=== PATIENT | female | born 1960 | race Caucasian/White ===

== ENCOUNTER 2019-05-20 08:53 | Inpatient (IN) | payer MEDICAID ==
[~2019-05-20] VITALS: Ht 180.3 cm; Wt 137.8 kg
[2019-05-20 09:50] LABS: BASOPHILS % (AUTO) 0.2 % (0-1); EOSINOPHILS % (AUTO) 0 % (0-6); HEMATOCRIT 40.8 % (35.0-45.0); HEMOGLOBIN 13.8 g/dl (12.0-16.0); LYMPHOCYTES # (AUTO) 0.9 X10'3 (1.1-4.8); LYMPHOCYTES % (AUTO) 5.9 % (21-51); MEAN CORPUSCULAR HEMOGLOBIN 29.9 PG (27.0-31.0); MEAN CORPUSCULAR HGB CONC 33.8 g/dL (33.0-36.5); MEAN CORPUSCULAR VOLUME 88.4 FL (78-98); MEAN PLATELET VOLUME 7.2 FL (7.4-10.4); MONOCYTES # (AUTO) 0.5 X10'3 (0-0.9); MONOCYTES % (AUTO) 3.5 % (2-12); NEUTROPHILS # (AUTO) 13.2 X10'3 (1.8-7.7); NEUTROPHILS % (AUTO) 90.4 % (42-75); PLATELET COUNT 194 X10'3 (140-440); RED BLOOD COUNT 4.61 X10'6 (4.20-5.60); RED CELL DISTRIBUTION WIDTH 13.7 % (11.5-14.5); WHITE BLOOD COUNT 14.6 X10'3 (4.5-11.0)
[2019-05-20 10:02] LABS: PARTIAL THROMBOPLASTIN TIME 37 SECONDS (22-32)
[2019-05-20 10:08] LABS: ALANINE AMINOTRANSFERASE 15 U/L (12-78); ALBUMIN 3.4 G/DL (3.4-5.0); ALBUMIN/GLOBULIN RATIO 0.7 (1.1-1.5); ALKALINE PHOSPHATASE 60 IU/L (46-116); ANION GAP 11 (8-16); ASPARTATE AMINO TRANSFERASE 21 U/L (10-37); BILIRUBIN,TOTAL 0.8 MG/DL (0.1-1.0); BLOOD UREA NITROGEN 22 MG/DL (7-18); CHLORIDE 96 MMOL/L (99-107); GLUCOSE 103 MG/DL (70-104); POTASSIUM 3.5 MMOL/L (3.5-5.1); SODIUM 133 MMOL/L (135-145); TOTAL PROTEIN 8.1 G/DL (6.4-8.2); eGFR 50 ML/MIN
[2019-05-20] MEDS ORDERED: CefTRIAXone 2gm/D5W 50ml 50 ML IV ONE (10:40)
[2019-05-20] MEDS ORDERED: vancomycin/NS 1 GM ADD-VANTAGE 250 ML IV ONE (10:40)
[2019-05-20] MEDS ORDERED: normal saline 1000ML IV soln IV ONE (10:40)
[2019-05-20] MEDS ORDERED: DOXY-1 PO (11:08)
[2019-05-20] MEDS ORDERED: AMOX-580 PO (11:08)
[2019-05-20] MEDS ORDERED: ALB0.5UD IH (11:09)
[2019-05-20] MEDS ORDERED: magnesium hydroxide 30ml (MOM) UD suspension PO PRN (12:35)
[2019-05-20] MEDS ORDERED: acetaminophen 325mg tablet PO PRN (12:35)
[2019-05-20] MEDS ORDERED: HYDROcodone/acetaminophen 5mg/325mg tablet PO PRN (12:35)
[2019-05-20] MEDS ORDERED: mag hydrox/Alum hydrox/simeth 30ml oral suspension PO PRN (12:35)
[2019-05-20] MEDS: normal saline 1000ml 1,000 ML IV SCH ×2 (13:14→22:34)
[2019-05-20 14:10] LABS: CLARITY,URINE SLIGHTLY CLOUDY (Clear); GLUCOSE, URINE NEGATIVE (Neg); KETONES,URINE 15 mg/dl (Neg); LEUKOCYTE ESTERASE ,URINE NEGATIVE (Neg); NITRITES, URINE NEGATIVE (Neg); OCCULT BLOOD,URINE LARGE (Neg); PROTEIN,URINE 30 mg/dl (Neg)
[2019-05-20 14:12] LABS: COLOR,URINE DARK YELLOW (Yellow); UA COLLECTION TYPE CLN CATCH MIDSTREAM
[2019-05-20 14:13] LABS: URINE AMPHETAMINE SCREEN NEGATIVE (Neg); URINE BARBITUATE SCREEN NEGATIVE (Neg); URINE BENZODIAZEPINES SCREEN NEGATIVE (Neg); URINE CANNABINOID SCREEN NEGATIVE (Neg); URINE COCAINE SCREEN NEGATIVE (Neg); URINE METHADONE SCREEN POSITIVE (Neg); URINE OPIATE SCREEN NEGATIVE (Neg); URINE PHENCYCLIDINE SCREEN NEGATIVE (Neg)
[2019-05-20] MEDS: ondansetron/PF 4mg/2ml inj IV PRN (14:20)
[2019-05-20 14:27] LABS: WBC,URINE 0-4 /HPF (0-4)
[2019-05-20] MEDS: HYDROmorphone inj. 0.5 MG/0.5 ML DISP.SYRIN IV PRN ×2 (14:27→19:02)
[2019-05-20 14:28] LABS: AMORPHOUS URATES 1+; BACTERIA,URINE NONE SEEN /HPF (Neg); CELLULAR CAST 0-4 /LPF (NEGATIVE); COARSE GRANULAR CAST 0-3 /LPF (NEGATIVE); FINE GRANULAR CAST 0-3 /LPF (NEGATIVE); HYALINE CASTS 0-3 /LPF (NEGATIVE); MUCUS STRANDS MODERATE /LPF (Neg); RENAL CELLS, URINE FEW /HPF; SQUAMOUS EPITHELIAL CELL,UR FEW /LPF (FEW); TRANSITIONAL EPI CELLS,URINE FEW /HPF
[2019-05-20] MEDS ORDERED: piperacillin/tazo 4.5gm/100ml 100 ML IV SCH (16:00)
--- NOTE | 2019-05-20 16:00 | NUR ---
Patient in room ORTHO 4021B. I have received report from HEAD REFRIGERATING ENGINEER and had the opportunity to ask questions and assume patient care.
[2019-05-20] MEDS: HYDROcodone/acetaminophen 10/325mg tab PO PRN (17:43)
[2019-05-20 18:00] VITALS: BP 100/34
--- NOTE | 2019-05-20 18:28 | NUR ---
Problems reprioritized. Patient report given, questions answered & plan of care reviewed with MARIA ELENA WALKER.
[2019-05-20] MEDS: heparin, porcine 5000 units/ml vial SQ SCH (21:24)
[2019-05-20 22:00] VITALS: BP 101/44
[2019-05-21] MEDS: piperacillin/tazo 4.5gm/100ml 100 ML IV SCH ×4 (02:00→19:05)
[2019-05-21] MEDS: albuterol 2.5 MG/3 ML nebule NEB PRN (02:10)
[2019-05-21] MEDS: normal saline 1000ml 1,000 ML IV SCH (02:55)
[2019-05-21 05:00] VITALS: BP 109/61
[2019-05-21 06:13] LABS: BASOPHILS % (AUTO) 0.1 % (0-1); EOSINOPHILS % (AUTO) 0.3 % (0-6); HEMATOCRIT 36.3 % (35.0-45.0); HEMOGLOBIN 12.5 g/dl (12.0-16.0); LYMPHOCYTES # (AUTO) 0.9 X10'3 (1.1-4.8); LYMPHOCYTES % (AUTO) 6.9 % (21-51); MEAN CORPUSCULAR HEMOGLOBIN 30.3 PG (27.0-31.0); MEAN CORPUSCULAR HGB CONC 34.4 g/dL (33.0-36.5); MEAN PLATELET VOLUME 7.4 FL (7.4-10.4); MONOCYTES # (AUTO) 0.8 X10'3 (0-0.9); MONOCYTES % (AUTO) 5.7 % (2-12); NEUTROPHILS # (AUTO) 11.9 X10'3 (1.8-7.7); PLATELET COUNT 190 X10'3 (140-440); RED BLOOD COUNT 4.12 X10'6 (4.20-5.60); RED CELL DISTRIBUTION WIDTH 14.3 % (11.5-14.5); WHITE BLOOD COUNT 13.6 X10'3 (4.5-11.0)
[2019-05-21 06:15] LABS: ALBUMIN 2.8 G/DL (3.4-5.0); ANION GAP 7 (8-16); BLOOD UREA NITROGEN 18 MG/DL (7-18); BUN/CREATININE RATIO 21.7 (6.6-38.0); CALCIUM 8.6 MG/DL (8.5-10.1); CHLORIDE 103 MMOL/L (99-107); CREATININE 0.83 MG/DL (0.40-0.90); GLUCOSE 133 MG/DL (70-104); POTASSIUM 3.6 MMOL/L (3.5-5.1); SODIUM 138 MMOL/L (135-145); TOTAL CARBON DIOXIDE 27.7 MMOL/L (24-32); eGFR 70 ML/MIN
--- NOTE | 2019-05-21 06:16 | NUR ---
Problems reprioritized. Patient report given, questions answered & plan of care reviewed with Diann ARREDONDO.
--- NOTE | 2019-05-21 06:34 | NUR ---
Patient in room ORTHO 4021B. I have received report from MARIA ELENA Ramirez and had the opportunity to ask questions and assume patient care.
[2019-05-21] MEDS: HYDROmorphone inj. 0.5 MG/0.5 ML DISP.SYRIN IV PRN ×2 (07:02→19:06)
[2019-05-21] MEDS: heparin, porcine 5000 units/ml vial SQ SCH ×2 (07:15→19:05)
[2019-05-21 07:45] VITALS: BP 114/46
--- NOTE | 2019-05-21 08:04 | NUR ---
PAGER ID: [phone] MESSAGE: LOAN [phone]-NIHARIKA WALKER 4021B...PT CURRENTLY TAKES METHADONE LIQUID 80MG DAILY AT 5AM, THROUGH [facility], ITS NOT ON MED REQ, CAN I GET AN ORDER?
[2019-05-21 10:00] VITALS: BP 89/53
--- NOTE | 2019-05-21 10:23 | NUR ---
UPON IV ASSESSMENT, NOTICED MED WAS NOT RUNNING, WAS STILL CLAMPED. SIGN SHOP SUPERVISOR NOTIFIED AND MD NOTIFIED, CONTINUE WITH NEXT DOSE DUE AT 1000.
[2019-05-21] MEDS: methadone 10mg tablet PO SCH (11:37)
--- NOTE | 2019-05-21 17:48 | NUR ---
PAGER ID: [phone] MESSAGE: LOAN [id number]-RE: NIHARIKA WALKER 4021B...PT IS HAVING A HARD TIME BREATHING...CAN I ORDER RESPITORY EVAL & TX?
[2019-05-21 18:00] VITALS: BP 123/57
--- NOTE | 2019-05-21 18:15 | NUR ---
Problems reprioritized. Patient report given, questions answered & plan of care reviewed with MARIA ELENA ABARCA.
[2019-05-21 22:00] VITALS: BP 110/50
[2019-05-22] MEDS: HYDROmorphone inj. 0.5 MG/0.5 ML DISP.SYRIN IV PRN ×2 (00:50→05:07)
[2019-05-22] MEDS: piperacillin/tazo 4.5gm/100ml 100 ML IV SCH ×3 (01:43→17:53)
[2019-05-22] MEDS: normal saline 1000ml 1,000 ML IV SCH ×2 (01:44→04:34)
[2019-05-22 06:00] VITALS: BP 123/57
--- NOTE | 2019-05-22 06:26 | NUR ---
Patient report given, questions answered and plan of care reviewed with MARIA ELENA Araiza.
[2019-05-22] MEDS ORDERED: VANCOMYCIN LEVEL IV ONE ×2 (07:30→11:30)
[2019-05-22] MEDS: methadone 10mg tablet PO SCH (08:03)
[2019-05-22] MEDS: heparin, porcine 5000 units/ml vial SQ SCH ×2 (08:06→19:43)
[2019-05-22 09:05] LABS: BASOPHILS % (AUTO) 0.3 % (0-1); EOSINOPHILS # (AUTO) 0.1 X10'3 (0-0.9); EOSINOPHILS % (AUTO) 1.4 % (0-6); HEMATOCRIT 35.3 % (35.0-45.0); LYMPHOCYTES # (AUTO) 1.3 X10'3 (1.1-4.8); LYMPHOCYTES % (AUTO) 14.4 % (21-51); MEAN CORPUSCULAR HEMOGLOBIN 30.3 PG (27.0-31.0); MEAN CORPUSCULAR HGB CONC 33.9 g/dL (33.0-36.5); MEAN CORPUSCULAR VOLUME 89.3 FL (78-98); MEAN PLATELET VOLUME 7.2 FL (7.4-10.4); MONOCYTES # (AUTO) 0.8 X10'3 (0-0.9); MONOCYTES % (AUTO) 9.1 % (2-12); NEUTROPHILS # (AUTO) 6.7 X10'3 (1.8-7.7); NEUTROPHILS % (AUTO) 74.8 % (42-75); PLATELET COUNT 189 X10'3 (140-440); RED BLOOD COUNT 3.96 X10'6 (4.20-5.60); RED CELL DISTRIBUTION WIDTH 14.7 % (11.5-14.5)
--- NOTE | 2019-05-22 09:21 | NUR ---
PAGER ID: [phone] MESSAGE: Teodora [phone] re Yessi Delgado in [id number]- Can we increase pain meds? dilaudid 1 mg? .5mg was ineffective, as is 1 [place] 10. She is opiate tolerant
[2019-05-22] MEDS: ibuprofen tablet 400 MG TABLET PO SCH ×3 (09:52→17:53)
[2019-05-22 10:00] VITALS: BP 112/52
[2019-05-22] MEDS: HYDROmorphone 1 mg/ml syringe IV PRN ×4 (10:16→23:48)
--- NOTE | 2019-05-22 11:47 | NUR ---
Student documentation: I have reviewed all interventions, assessments performed and documented by Burton Carlton. Student Medication Administration: For this medication-pass time frame, all medication were reviewed, dispensed, administered and documented per hospital policy by Burton Carlton.
--- NOTE | 2019-05-22 12:00 | NUR ---
RECEIVED REPORT FROM MIKAL ODELL, SALES PERFORMANCE ANALYST ON PATIENT IN ROOM 4021B ORTHO. I WAS ABLE TO ASK QUESTIONS AND HAVE THEM ANSWERED. I ASSUMED CARE OF PATIENT.
[2019-05-22] MEDS ORDERED: ibuprofen tablet 400 MG TABLET PO SCH (12:30)
[2019-05-22] MEDS: furosemide 20MG tablet PO SCH (12:43)
[2019-05-22 12:46] VITALS: BP 128/62
[2019-05-22] MEDS: albuterol 2.5 MG/3 ML nebule NEB PRN (16:15)
[2019-05-22 18:00] VITALS: BP 104/48
--- NOTE | 2019-05-22 18:35 | NUR ---
Patient in room ORTHO 4021. I have received report from Teodora ARREDONDO and had the opportunity to ask questions and assume patient care.
[2019-05-22] MEDS: mineral oil/petrolatum, white cream 113gm jar TP SCH (21:42)
[2019-05-22 22:00] VITALS: BP 100/49
--- NOTE | 2019-05-22 23:40 | NUR ---
Offered [place] to patient for pain but patient doesn't want norco due to it upsets her stomach.
[2019-05-23] MEDS: piperacillin/tazo 4.5gm/100ml 100 ML IV SCH ×3 (01:52→16:49)
[2019-05-23] MEDS: HYDROmorphone 1 mg/ml syringe IV PRN ×5 (04:23→20:50)
[2019-05-23 06:00] VITALS: BP 93/43
--- NOTE | 2019-05-23 06:20 | NUR ---
Patient in room ORTHO 4021. I have received report from Debbie ARREDONDO and had the opportunity to ask questions and assume patient care.
--- NOTE | 2019-05-23 06:26 | NUR ---
Problems reprioritized. Patient report given, questions answered & plan of care reviewed with Bea ARREDONDO.
[2019-05-23 06:31] LABS: BASOPHILS % (AUTO) 0.5 % (0-1); EOSINOPHILS # (AUTO) 0.2 X10'3 (0-0.9); EOSINOPHILS % (AUTO) 2.3 % (0-6); HEMATOCRIT 33.9 % (35.0-45.0); HEMOGLOBIN 11.5 g/dl (12.0-16.0); LYMPHOCYTES # (AUTO) 1.5 X10'3 (1.1-4.8); LYMPHOCYTES % (AUTO) 20.3 % (21-51); MEAN CORPUSCULAR HEMOGLOBIN 29.9 PG (27.0-31.0); MEAN CORPUSCULAR HGB CONC 33.8 g/dL (33.0-36.5); MEAN CORPUSCULAR VOLUME 88.4 FL (78-98); MEAN PLATELET VOLUME 7.1 FL (7.4-10.4); MONOCYTES # (AUTO) 0.7 X10'3 (0-0.9); MONOCYTES % (AUTO) 10.1 % (2-12); NEUTROPHILS # (AUTO) 4.9 X10'3 (1.8-7.7); NEUTROPHILS % (AUTO) 66.8 % (42-75); PLATELET COUNT 218 X10'3 (140-440); RED BLOOD COUNT 3.84 X10'6 (4.20-5.60); RED CELL DISTRIBUTION WIDTH 14.6 % (11.5-14.5); WHITE BLOOD COUNT 7.3 X10'3 (4.5-11.0)
[2019-05-23 06:44] LABS: ALBUMIN 2.2 G/DL (3.4-5.0); ANION GAP 6 (8-16); BLOOD UREA NITROGEN 14 MG/DL (7-18); BUN/CREATININE RATIO 17.1 (6.6-38.0); CALCIUM 8.5 MG/DL (8.5-10.1); CHLORIDE 105 MMOL/L (99-107); CREATININE 0.82 MG/DL (0.40-0.90); GLUCOSE 125 MG/DL (70-104); SODIUM 139 MMOL/L (135-145); TOTAL CARBON DIOXIDE 27.6 MMOL/L (24-32); eGFR 71 ML/MIN
[2019-05-23] MEDS: methadone 10mg tablet PO SCH (08:24)
[2019-05-23] MEDS: furosemide 20MG tablet PO SCH (08:25)
[2019-05-23] MEDS: heparin, porcine 5000 units/ml vial SQ SCH ×2 (08:25→19:34)
[2019-05-23] MEDS: ibuprofen tablet 400 MG TABLET PO SCH ×3 (08:25→16:49)
[2019-05-23 10:00] VITALS: BP 116/59
[2019-05-23] MEDS: mineral oil/petrolatum, white cream 113gm jar TP SCH ×2 (10:01→19:35)
[2019-05-23 18:00] VITALS: BP 115/49
--- NOTE | 2019-05-23 18:04 | NUR ---
Problems reprioritized. Patient report given, questions answered & plan of care reviewed with Debbie ARREDONDO.
--- NOTE | 2019-05-23 18:29 | NUR ---
Patient in room ORTHO 4021. I have received report from Bea ARREDONDO and had the opportunity to ask questions and assume patient care.
[2019-05-23] MEDS: lactobacillus rhamnosus 10,000 MMU CELLS/CAPSULE PO SCH (19:33)
[2019-05-23 22:00] VITALS: BP 112/46
[2019-05-24] MEDS: piperacillin/tazo 4.5gm/100ml 100 ML IV SCH ×3 (01:32→17:48)
[2019-05-24] MEDS: HYDROmorphone 1 mg/ml syringe IV PRN ×6 (01:35→22:01)
[2019-05-24 06:00] VITALS: BP 107/56
--- NOTE | 2019-05-24 06:21 | NUR ---
Problems reprioritized. Patient report given, questions answered & plan of care reviewed with Bea ARREDONDO.
--- NOTE | 2019-05-24 06:29 | NUR ---
Patient in room ORTHO 4021. I have received report from Debbie ARREDONDO and had the opportunity to ask questions and assume patient care.
[2019-05-24 07:12] LABS: BASOPHILS % (AUTO) 0.5 % (0-1); EOSINOPHILS # (AUTO) 0.3 X10'3 (0-0.9); EOSINOPHILS % (AUTO) 3.8 % (0-6); HEMATOCRIT 37.1 % (35.0-45.0); HEMOGLOBIN 12.5 g/dl (12.0-16.0); LYMPHOCYTES # (AUTO) 1.6 X10'3 (1.1-4.8); MEAN CORPUSCULAR HEMOGLOBIN 30.1 PG (27.0-31.0); MEAN CORPUSCULAR HGB CONC 33.7 g/dL (33.0-36.5); MEAN CORPUSCULAR VOLUME 89.3 FL (78-98); MONOCYTES # (AUTO) 0.5 X10'3 (0-0.9); NEUTROPHILS # (AUTO) 4.7 X10'3 (1.8-7.7); NEUTROPHILS % (AUTO) 65.7 % (42-75); PLATELET COUNT 296 X10'3 (140-440); RED BLOOD COUNT 4.16 X10'6 (4.20-5.60); RED CELL DISTRIBUTION WIDTH 14.8 % (11.5-14.5); WHITE BLOOD COUNT 7.2 X10'3 (4.5-11.0)
[2019-05-24 07:18] LABS: ALBUMIN 2.5 G/DL (3.4-5.0); ANION GAP 5 (8-16); BLOOD UREA NITROGEN 14 MG/DL (7-18); BUN/CREATININE RATIO 16.7 (6.6-38.0); CALCIUM 9.6 MG/DL (8.5-10.1); CHLORIDE 105 MMOL/L (99-107); CREATININE 0.84 MG/DL (0.40-0.90); GLUCOSE 104 MG/DL (70-104); POTASSIUM 4.2 MMOL/L (3.5-5.1); SODIUM 141 MMOL/L (135-145); TOTAL CARBON DIOXIDE 31.2 MMOL/L (24-32); eGFR 69 ML/MIN
[2019-05-24 07:54] LABS: PLATELET ESTIMATE NORMAL; TOTAL CELLS COUNTED 100
[2019-05-24] MEDS: mineral oil/petrolatum, white cream 113gm jar TP SCH ×2 (08:00→19:59)
[2019-05-24] MEDS: heparin, porcine 5000 units/ml vial SQ SCH ×2 (08:27→19:51)
[2019-05-24] MEDS: furosemide 20MG tablet PO SCH (08:28)
[2019-05-24] MEDS: methadone 10mg tablet PO SCH (08:28)
[2019-05-24] MEDS: lactobacillus rhamnosus 10,000 MMU CELLS/CAPSULE PO SCH ×2 (08:28→19:51)
[2019-05-24] MEDS: ibuprofen tablet 400 MG TABLET PO SCH ×3 (08:28→17:47)
[2019-05-24 10:00] VITALS: BP 107/49
[2019-05-24] MEDS: loperamide 2mg capsule PO PRN (17:53)
[2019-05-24 18:00] VITALS: BP 102/56
--- NOTE | 2019-05-24 18:22 | NUR ---
Patient in room ORTHO 4021. I have received report from Bea ARREDONDO and had the opportunity to ask questions and assume patient care.
--- NOTE | 2019-05-24 18:35 | NUR ---
Problems reprioritized. Patient report given, questions answered & plan of care reviewed with Debbie ARREDONDO.
[2019-05-24 22:00] VITALS: BP 92/42
[2019-05-25] MEDS: piperacillin/tazo 4.5gm/100ml 100 ML IV SCH ×3 (01:49→17:18)
[2019-05-25] MEDS: HYDROmorphone 1 mg/ml syringe IV PRN ×6 (01:50→23:33)
[2019-05-25 06:00] VITALS: BP 107/47
--- NOTE | 2019-05-25 06:21 | NUR ---
Problems reprioritized. Patient report given, questions answered & plan of care reviewed with Lan ARREDONDO.
--- NOTE | 2019-05-25 06:26 | NUR ---
Patient in room ORTHO 4021. I have received report from MARIA ELENA Lewis and had the opportunity to ask questions and assume patient care.
[2019-05-25 07:07] LABS: BASOPHILS % (AUTO) 0.3 % (0-1); EOSINOPHILS # (AUTO) 0.2 X10'3 (0-0.9); EOSINOPHILS % (AUTO) 3.1 % (0-6); HEMATOCRIT 32.7 % (35.0-45.0); HEMOGLOBIN 11.1 g/dl (12.0-16.0); LYMPHOCYTES # (AUTO) 1.8 X10'3 (1.1-4.8); LYMPHOCYTES % (AUTO) 23.5 % (21-51); MEAN CORPUSCULAR HEMOGLOBIN 30.5 PG (27.0-31.0); MEAN CORPUSCULAR HGB CONC 34.1 g/dL (33.0-36.5); MEAN CORPUSCULAR VOLUME 89.4 FL (78-98); MEAN PLATELET VOLUME 6.8 FL (7.4-10.4); MONOCYTES # (AUTO) 0.7 X10'3 (0-0.9); MONOCYTES % (AUTO) 9.4 % (2-12); NEUTROPHILS # (AUTO) 4.8 X10'3 (1.8-7.7); NEUTROPHILS % (AUTO) 63.7 % (42-75); PLATELET COUNT 283 X10'3 (140-440); RED BLOOD COUNT 3.65 X10'6 (4.20-5.60); RED CELL DISTRIBUTION WIDTH 14.5 % (11.5-14.5); WHITE BLOOD COUNT 7.5 X10'3 (4.5-11.0)
[2019-05-25] MEDS: lactobacillus rhamnosus 10,000 MMU CELLS/CAPSULE PO SCH ×2 (07:11→19:34)
[2019-05-25] MEDS: heparin, porcine 5000 units/ml vial SQ SCH ×2 (07:11→19:34)
[2019-05-25] MEDS: furosemide 20MG tablet PO SCH (07:11)
[2019-05-25] MEDS: methadone 10mg tablet PO SCH (07:12)
[2019-05-25] MEDS: mineral oil/petrolatum, white cream 113gm jar TP SCH ×3 (07:15→19:26)
[2019-05-25 07:40] LABS: ANION GAP 5 (8-16); BLOOD UREA NITROGEN 12 MG/DL (7-18); BUN/CREATININE RATIO 14.8 (6.6-38.0); CALCIUM 8.2 MG/DL (8.5-10.1); CHLORIDE 105 MMOL/L (99-107); CREATININE 0.81 MG/DL (0.40-0.90); GLUCOSE 109 MG/DL (70-104); POTASSIUM 4.1 MMOL/L (3.5-5.1); SODIUM 142 MMOL/L (135-145); TOTAL CARBON DIOXIDE 32.5 MMOL/L (24-32); eGFR 72 ML/MIN
[2019-05-25] MEDS: ibuprofen tablet 400 MG TABLET PO SCH ×3 (08:00→17:18)
[2019-05-25 09:52] VITALS: BP 101/51
--- NOTE | 2019-05-25 18:05 | NUR ---
Problems reprioritized. Patient report given, questions answered & plan of care reviewed with MARIA ELENA Smith.
--- NOTE | 2019-05-25 18:20 | NUR ---
Initial: Pt admit w/ acute RLE cellulitis and R-sided heart failure on lasix per MD note. WOC reports extensive RLE cellulitis present w/ fluid-filled blisters and wounds. Per WOC L lower leg resolving wounds. PO decreased to 50-75% avg meals down from 100% on admit not meeting healing needs. LBM 05/24. Pt will need high protein ed prior to d/c. Will continue to monitor for additional protein needs. Rec: 1. continue heart healthy diet 2. monitor for ONS needs 3. high protein ed prior to d/c 4. bowel care as needed 5. MVI for wound healing 6. wt per rx Addendum: 05/25/19 at [address] Amended: Links added.
[2019-05-25 18:22] VITALS: BP 113/40
[2019-05-25 22:00] VITALS: BP 110/45
[2019-05-26] MEDS: piperacillin/tazo 4.5gm/100ml 100 ML IV SCH ×3 (01:48→17:09)
[2019-05-26] MEDS: HYDROmorphone 1 mg/ml syringe IV PRN ×3 (03:49→14:28)
[2019-05-26 06:00] VITALS: BP 118/53
--- NOTE | 2019-05-26 06:11 | NUR ---
REPORT GIVEN TO MARIA ELENA KUHN,.
[2019-05-26] MEDS: mineral oil/petrolatum, white cream 113gm jar TP SCH ×2 (08:00→19:53)
[2019-05-26] MEDS: lactobacillus rhamnosus 10,000 MMU CELLS/CAPSULE PO SCH ×2 (08:33→19:46)
[2019-05-26] MEDS: methadone 10mg tablet PO SCH (08:33)
[2019-05-26] MEDS: furosemide 20MG tablet PO SCH (08:34)
[2019-05-26] MEDS: ibuprofen tablet 400 MG TABLET PO SCH ×3 (08:35→17:09)
[2019-05-26] MEDS: ondansetron/PF 4mg/2ml inj IV PRN ×2 (08:38→15:09)
[2019-05-26] MEDS: HYDROcodone/acetaminophen 10/325mg tab PO PRN ×3 (08:40→19:56)
[2019-05-26] MEDS: heparin, porcine 5000 units/ml vial SQ SCH ×2 (08:50→19:52)
[2019-05-26] MEDS: albuterol 2.5 MG/3 ML nebule NEB PRN (09:04)
[2019-05-26 10:00] VITALS: BP 114/50
[2019-05-26] MEDS ORDERED: HYDROcodone/acetaminophen 5mg/325mg tablet PO PRN (10:35)
--- NOTE | 2019-05-26 14:43 | NUR ---
Reassessment: Pt seen by RD for written/verbal high protein ed w/ RD contact information provided. Pt is agreeable to chocolate ensure high protein TIDWM; notified. Pt friend at bedside bringing in food from outside w/ breakfasts. RD encouraged pt to bring premier proteins from home since friend would like to bring in protein drinks from outside as well. Appropriate given pt protein needs and current wt for wound healing. Adam continue to monitor. Rec: 1. continue heart healthy diet 2. chocolate ensure enlive TIDWM 3. premier proteins from outside given healing needs 4. bowel care as needed 5. MVI for wound healing 6. wt per rx Addendum: 05/26/19 at [address] Amended: Links added.
[2019-05-26 18:13] VITALS: BP 103/39
[2019-05-26 22:00] VITALS: BP 103/65
[2019-05-27] MEDS: HYDROcodone/acetaminophen 10/325mg tab PO PRN ×4 (01:25→21:45)
[2019-05-27] MEDS: piperacillin/tazo 4.5gm/100ml 100 ML IV SCH ×3 (01:25→17:15)
[2019-05-27 06:00] VITALS: BP 115/57
[2019-05-27] MEDS: mineral oil/petrolatum, white cream 113gm jar TP SCH ×2 (08:00→19:54)
[2019-05-27] MEDS: silver sulfadiazine cream 400gm jar TP SCH (08:00)
[2019-05-27] MEDS: furosemide 20MG tablet PO SCH (08:53)
[2019-05-27] MEDS: ibuprofen tablet 400 MG TABLET PO SCH ×3 (08:53→17:15)
[2019-05-27] MEDS: lactobacillus rhamnosus 10,000 MMU CELLS/CAPSULE PO SCH ×2 (08:53→19:53)
[2019-05-27] MEDS: methadone 10mg tablet PO SCH (08:53)
[2019-05-27] MEDS: heparin, porcine 5000 units/ml vial SQ SCH ×2 (08:54→19:54)
[2019-05-27] MEDS: HYDROmorphone 1 mg/ml syringe IV PRN (09:10)
[2019-05-27 10:00] VITALS: BP 110/63
[2019-05-27 18:00] VITALS: BP 114/37
--- NOTE | 2019-05-27 18:36 | NUR ---
REPORT REC'D FROM MARIA ELENA KUHN.
[2019-05-27 22:00] VITALS: BP 125/44
[2019-05-28] MEDS: piperacillin/tazo 4.5gm/100ml 100 ML IV SCH ×3 (02:37→19:09)
[2019-05-28] MEDS: HYDROcodone/acetaminophen 10/325mg tab PO PRN ×4 (04:34→20:41)
[2019-05-28 06:00] VITALS: BP 104/48
--- NOTE | 2019-05-28 06:33 | NUR ---
REPORT GIVEN TO MARIA ELENA FENG.
[2019-05-28] MEDS: lactobacillus rhamnosus 10,000 MMU CELLS/CAPSULE PO SCH ×2 (08:34→20:40)
[2019-05-28] MEDS: methadone 10mg tablet PO SCH (08:34)
[2019-05-28] MEDS: heparin, porcine 5000 units/ml vial SQ SCH ×2 (08:34→20:42)
[2019-05-28] MEDS: furosemide 20MG tablet PO SCH (08:34)
[2019-05-28] MEDS: ibuprofen tablet 400 MG TABLET PO SCH ×3 (08:34→17:30)
[2019-05-28] MEDS: mineral oil/petrolatum, white cream 113gm jar TP SCH ×2 (08:40→20:43)
[2019-05-28] MEDS: silver sulfadiazine cream 400gm jar TP SCH (08:40)
[2019-05-28 10:00] VITALS: BP 124/63
--- NOTE | 2019-05-28 10:13 | NUR ---
WOUND INFECTION EDUCATION PROVIDED BY WOUND CARE 1. Patient instructed to call their primary doctor, or go the ED immediately if any of the following symptoms occur: * Increased pain in wound * Increase in drainage from the wound * Redness in the skin surrounding the wound * Warmth in the skin surrounding the wound * Bleeding from the wound * Temperature of 101 or greater 2. If any of these occur while in the hospital tell a nurse immediately. Addendum: 05/28/19 at 1014 by Zahira Grewal RN Amended: Links added.
--- NOTE | 2019-05-28 14:19 | NUR ---
CT screen form completed and faxed.
[2019-05-28] MEDS ORDERED: iohexol 350MG/ML 100ml bottle IV ONE (15:21)
[2019-05-28] MEDS ORDERED: iohexol 350 MG/ML 50ML vial IV ONE (15:21)
[2019-05-28 18:00] VITALS: BP 98/40
--- NOTE | 2019-05-28 18:25 | NUR ---
Problems reprioritized. Patient report given, questions answered & plan of care reviewed with MARIA ELENA Dominguez.
[2019-05-28 22:00] VITALS: BP 106/44
[2019-05-29] MEDS: piperacillin/tazo 4.5gm/100ml 100 ML IV SCH ×3 (02:13→17:06)
[2019-05-29] MEDS: HYDROcodone/acetaminophen 10/325mg tab PO PRN ×3 (02:14→11:48)
[2019-05-29 06:00] VITALS: BP 108/62
[2019-05-29 06:10] LABS: BASOPHILS # (AUTO) 0.1 X10'3 (0-0.2); BASOPHILS % (AUTO) 1.1 % (0-1); EOSINOPHILS # (AUTO) 0.2 X10'3 (0-0.9); EOSINOPHILS % (AUTO) 2.4 % (0-6); HEMATOCRIT 32.6 % (35.0-45.0); HEMOGLOBIN 10.9 g/dl (12.0-16.0); LYMPHOCYTES # (AUTO) 1.6 X10'3 (1.1-4.8); MEAN CORPUSCULAR HEMOGLOBIN 29.9 PG (27.0-31.0); MEAN CORPUSCULAR HGB CONC 33.5 g/dL (33.0-36.5); MEAN PLATELET VOLUME 6.6 FL (7.4-10.4); MONOCYTES # (AUTO) 0.5 X10'3 (0-0.9); MONOCYTES % (AUTO) 7.4 % (2-12); NEUTROPHILS # (AUTO) 4.2 X10'3 (1.8-7.7); NEUTROPHILS % (AUTO) 64.1 % (42-75); PLATELET COUNT 323 X10'3 (140-440); RED BLOOD COUNT 3.66 X10'6 (4.20-5.60); RED CELL DISTRIBUTION WIDTH 14.7 % (11.5-14.5); WHITE BLOOD COUNT 6.5 X10'3 (4.5-11.0)
--- NOTE | 2019-05-29 06:15 | NUR ---
Problems reprioritized. Patient report given, questions answered & plan of care reviewed with Therese Alford RN. Addendum: 05/29/19 at 0615 by Angelica Hutchison RN Amended: Links added.
[2019-05-29 06:29] LABS: ALANINE AMINOTRANSFERASE 12 U/L (12-78); ALBUMIN 2.1 G/DL (3.4-5.0); ALBUMIN/GLOBULIN RATIO 0.5 (1.1-1.5); ALKALINE PHOSPHATASE 69 IU/L (46-116); ANION GAP 2 (8-16); ASPARTATE AMINO TRANSFERASE 12 U/L (10-37); BILIRUBIN,TOTAL 0.3 MG/DL (0.1-1.0); BLOOD UREA NITROGEN 14 MG/DL (7-18); BUN/CREATININE RATIO 15.6 (6.6-38.0); CALCIUM 8.6 MG/DL (8.5-10.1); CHLORIDE 106 MMOL/L (99-107); GLUCOSE 104 MG/DL (70-104); POTASSIUM 4.2 MMOL/L (3.5-5.1); SODIUM 140 MMOL/L (135-145); TOTAL CARBON DIOXIDE 32.1 MMOL/L (24-32); TOTAL PROTEIN 6.6 G/DL (6.4-8.2); eGFR 64 ML/MIN
[2019-05-29] MEDS: lactobacillus rhamnosus 10,000 MMU CELLS/CAPSULE PO SCH ×2 (08:18→19:54)
[2019-05-29] MEDS: furosemide 20MG tablet PO SCH (08:18)
[2019-05-29] MEDS: ibuprofen tablet 400 MG TABLET PO SCH ×3 (08:18→17:05)
[2019-05-29] MEDS: methadone 10mg tablet PO SCH (08:18)
[2019-05-29] MEDS: heparin, porcine 5000 units/ml vial SQ SCH ×2 (08:19→19:55)
[2019-05-29] MEDS: loperamide 2mg capsule PO PRN ×2 (08:27→20:19)
[2019-05-29 09:00] VITALS: BP 101/51
[2019-05-29] MEDS: silver sulfadiazine cream 400gm jar TP SCH (09:00)
[2019-05-29] MEDS: mineral oil/petrolatum, white cream 113gm jar TP SCH ×2 (09:00→19:55)
--- NOTE | 2019-05-29 10:50 | NUR ---
Report given to MARIA ELENA Emanuel for continuation of care.
--- NOTE | 2019-05-29 11:00 | NUR ---
Patient in room ORTHO 4021. I have received report from Rocío and had the opportunity to ask questions and assume patient care.
--- NOTE | 2019-05-29 11:06 | NUR ---
Patient in room ORTHO 4021. I have received report from Rocío ARREDONDO and had the opportunity to ask questions and assume patient care.
--- NOTE | 2019-05-29 12:03 | NUR ---
I have reviewed Rocío's assessment and agree with it.
--- NOTE | 2019-05-29 12:05 | NUR ---
Patient in room ORTHO 4021. I have received report from SN García and had the opportunity to ask questions and assume patient care.
--- NOTE | 2019-05-29 12:09 | NUR ---
I have reviewed the charting performed by Rocío, and agree with the assessment.
--- NOTE | 2019-05-29 15:13 | NUR ---
Reassessment: Pt PO fluctuates 25-50% avg heart healthy diet not meeting needs. Pt also receiving some food from outside. Chocolate ensure enlive TIDWM added to meals today per RN; dietary notified. Appropriate given pt wt and protein needs w/ cellulitis DX. New scaled wt increased BMI to 42 from 39; wt also to change w/ lasix and current edema. LBM 3/4. Will continue to monitor for additional protein needs. Rec: 1. continue heart healthy diet; encourage PO 2. chocolate ensure enlive TIDWM; premier proteins being brought from outside 3. bowel care as needed 4. MVI for wound healing 5. wt per rx Addendum: 05/29/19 at [address] Amended: Links added.
[2019-05-29] MEDS: albuterol 2.5 MG/3 ML nebule NEB PRN (15:55)
--- NOTE | 2019-05-29 17:45 | NUR ---
Problems reprioritized. Patient report given, questions answered & plan of care reviewed with MARIA ELENA Wood.
[2019-05-29 18:00] VITALS: BP 100/39
--- NOTE | 2019-05-29 18:00 | NUR ---
Student Pt. assessment documentation reviewed and agreed upon. Addendum: 05/29/19 at 1801 by Trinity Yeung RN Amended: Links added.
--- NOTE | 2019-05-29 18:01 | NUR ---
Problems reprioritized. Patient report given, questions answered & plan of care reviewed with Ct.
[2019-05-29] MEDS: lactose-reduced food (Ensure Enlive) - 237ml bottle PO SCH ×2 (18:07→19:50)
--- NOTE | 2019-05-29 18:30 | NUR ---
Patient in room ORTHO 4021. I have received report from MARIA ELENA Stout and had the opportunity to ask questions and assume patient care.
[2019-05-29 22:00] VITALS: BP 103/38
[2019-05-30] MEDS: piperacillin/tazo 4.5gm/100ml 100 ML IV SCH ×2 (02:04→13:57)
[2019-05-30] MEDS: HYDROcodone/acetaminophen 10/325mg tab PO PRN ×2 (05:41→13:58)
[2019-05-30 06:00] VITALS: BP 114/50
--- NOTE | 2019-05-30 06:29 | NUR ---
Problems reprioritized. Patient report given, questions answered & plan of care reviewed with MARIA ELENA Araiza.
--- NOTE | 2019-05-30 06:38 | NUR ---
Problems reprioritized. Patient report given, questions answered & plan of care reviewed with MARIA ELENA Araiza.
[2019-05-30] MEDS: furosemide 20MG tablet PO SCH (07:41)
[2019-05-30] MEDS: ibuprofen tablet 400 MG TABLET PO SCH ×2 (07:41→13:57)
[2019-05-30] MEDS: lactobacillus rhamnosus 10,000 MMU CELLS/CAPSULE PO SCH (07:41)
[2019-05-30] MEDS: methadone 10mg tablet PO SCH (07:42)
[2019-05-30] MEDS: silver sulfadiazine cream 400gm jar TP SCH (07:43)
[2019-05-30] MEDS: mineral oil/petrolatum, white cream 113gm jar TP SCH (07:43)
[2019-05-30] MEDS: heparin, porcine 5000 units/ml vial SQ SCH (07:43)
[2019-05-30 09:46] LABS: BASOPHILS % (AUTO) 0.5 % (0-1); EOSINOPHILS # (AUTO) 0.1 X10'3 (0-0.9); EOSINOPHILS % (AUTO) 1.1 % (0-6); HEMATOCRIT 35.1 % (35.0-45.0); HEMOGLOBIN 11.7 g/dl (12.0-16.0); LYMPHOCYTES # (AUTO) 1.7 X10'3 (1.1-4.8); MEAN CORPUSCULAR HEMOGLOBIN 29.5 PG (27.0-31.0); MEAN CORPUSCULAR HGB CONC 33.3 g/dL (33.0-36.5); MEAN CORPUSCULAR VOLUME 88.7 FL (78-98); MONOCYTES # (AUTO) 0.4 X10'3 (0-0.9); MONOCYTES % (AUTO) 5.2 % (2-12); NEUTROPHILS # (AUTO) 4.8 X10'3 (1.8-7.7); NEUTROPHILS % (AUTO) 69.2 % (42-75); PLATELET COUNT 357 X10'3 (140-440); RED BLOOD COUNT 3.96 X10'6 (4.20-5.60); RED CELL DISTRIBUTION WIDTH 14.4 % (11.5-14.5); WHITE BLOOD COUNT 6.9 X10'3 (4.5-11.0)
[2019-05-30 10:00] VITALS: BP 102/44
[2019-05-30 10:04] LABS: ALANINE AMINOTRANSFERASE 13 U/L (12-78); ALBUMIN 2.3 G/DL (3.4-5.0); ALBUMIN/GLOBULIN RATIO 0.5 (1.1-1.5); ALKALINE PHOSPHATASE 67 IU/L (46-116); ANION GAP 5 (8-16); ASPARTATE AMINO TRANSFERASE 10 U/L (10-37); BILIRUBIN,TOTAL 0.4 MG/DL (0.1-1.0); BLOOD UREA NITROGEN 14 MG/DL (7-18); BUN/CREATININE RATIO 15.9 (6.6-38.0); CALCIUM 9.1 MG/DL (8.5-10.1); CHLORIDE 104 MMOL/L (99-107); CREATININE 0.88 MG/DL (0.40-0.90); GLUCOSE 116 MG/DL (70-104); POTASSIUM 4.4 MMOL/L (3.5-5.1); SODIUM 140 MMOL/L (135-145); TOTAL CARBON DIOXIDE 30.6 MMOL/L (24-32); TOTAL PROTEIN 7.2 G/DL (6.4-8.2); eGFR 65 ML/MIN
[2019-05-30] MEDS: lactose-reduced food (Ensure Enlive) - 237ml bottle PO SCH (13:00)
== END 2019-05-30 15:48 | DRG 720 ==
LOC: ER 08:54 → ED HOLD 12:34 → ORTHO 4S 16:34
PROVIDERS: ADMIT Family Medicine; ATTEND Internal Medicine
DX: A41.9 Sepsis, unspecified organism (principal); I27.81 Cor pulmonale (chronic); I50.32 Chronic diastolic (congestive) heart failure; I50.82 Biventricular heart failure; E66.9 Obesity, unspecified; F17.210 Nicotine dependence, cigarettes, uncomplicated; G89.4 Chronic pain syndrome; L03.115 Cellulitis of right lower limb; Z86.711 Personal history of pulmonary embolism; Z68.41 Body mass index [BMI] 40.0-44.9, adult; Z79.899 Other long term (current) drug therapy
CPT/HCPCS: 36415; 71045; 73706; 80048; 80053; 80305; 81001; 83036; 83605; 83880; 84145; 85025; 85610; 85730; 87040; 87081; 93971; 94640; 94760; 97161; 97530; G0378; J0696; J1170; J1644; J2405; J2543; J3370; J7030; Q9967